=== PATIENT | female | born 2000 | race Caucasian/White ===

== ENCOUNTER 2021-09-17 11:13 | Outpatient (CLI) | payer OTHER, SELFPAY ==
--- NOTE | ~2021-09-17 | US_ITS ---
EXAMINATION: US OB <= 14 weeks fetus DATE: 09/17/2021 11:40 INDICATION: Uncertain dates. TECHNIQUE: Real-time transabdominal pelvic ultrasound was performed. COMPARISON: None. FINDINGS: The uterus measures 15.7 x 7.0 x 9.8 cm. There is an intrauterine gestational sac. A yolk sac is iden tified. The crown rump length measures 5.3 cm, which correlates with an estimated gestational age of 12 weeks and 0 day(s) (+/-) 1 week(s) and 1 day(s). heart motion is identified measuring 154 beats per minute (bpm) by M-mode Doppler. The right ovary measures 3.3 x 1.5 x 2.1 cm. The left ovary measures 5.5 x 5.3 x 4.9 cm. There is a 4.2 cm cystic mass with low level echoes in left ovary, consistent with a hemorrhagic cyst. There is no free fluid in the pelvis. IMPRESSION: 1. Single living intrauterine gestation with estimated date of delivery of 04/01/2022. 2. 4.2 cm hemorrhagic cyst in left ovary. Reviewed, dictated and finalized at location A. IMPRESSION: 1. Single living intrauterine gestation with estimated date of delivery of . 2. 4.2 cm hemorrhagic cyst in left ovary.
== END 2021-09-17 11:14 ==
PROVIDERS: PCP Obstetrics & Gynecology Gynecology; Visit Provider Obstetrics & Gynecology Gynecology
DX: O34.80 Maternal care for other abnormalities of pelvic organs, unspecified trimester (principal); N83.202 Unspecified ovarian cyst, left side; Z3A.00 Weeks of gestation of pregnancy not specified
CPT/HCPCS: 76801

== ENCOUNTER 2021-10-19 11:13 | Outpatient (CLI) | payer OTHER, SELFPAY ==
--- NOTE | ~2021-10-19 | US_ITS ---
US OB limited Indication: Follow-up left ovarian cysts Procedure: High-resolution Limited obstetrical ultrasound Comparison: Ultrasound dated 09/17/2021 Findings: There is a single living intrauterine in breech presentation. heart rate is 146 BPM. Amniotic fluid is subjectively normal. Decreased size of corpus luteal cyst of the left ova ry measuring 2.9 x 2.7 x 1.9 cm compared with 4.2 x 3.8 x 3.9 cm on prior study. Placenta is anterior measuring 1.9 cm to the cervix. Impression: 1: Single living intrauterine in breech presentation. 2: Decreased size of corpus luteal cyst of the left ovary. 3: Low-lying anterior placenta measuring 1.9 cm to the cervix. Reviewed, dictated and finalized at location B. Impression: 1: Single living intrauterine in breech presentation. 2: Decreased size of corpus luteal cyst of the left ovary. 3: Low-lying anterior placenta measuring 1.9 cm to the cervix.
== END 2021-10-19 11:14 ==
LOC: MICIMG 11:14
PROVIDERS: PCP Obstetrics & Gynecology Gynecology; Visit Provider Obstetrics & Gynecology Gynecology
DX: N83.202 Unspecified ovarian cyst, left side (principal); O44.40 Low lying placenta NOS or without hemorrhage, unspecified trimester; Z3A.00 Weeks of gestation of pregnancy not specified
CPT/HCPCS: 76815

== ENCOUNTER 2021-11-03 12:45 | Outpatient (CLI) | payer OTHER, SELFPAY ==
--- NOTE | ~2021-11-03 | US_ITS ---
EXAMINATION: US OB /maternal detail DATE: 11/03/2021 13:15 INDICATION: Second trimester anatomic survey TECHNIQUE: Real-time ultrasound of the pelvis was performed. COMPARISON: None. FINDINGS: There is a single living fetus in vertex presentation. The placenta is anterior and 3.2 cm from the i nternal cervical os. heart rate is 151 beats per minute (bpm). cardiac activity and feta l movement are noted. The amniotic fluid index is subjectively normal. The following anatomy was identified as normal: 4 chamber heart 3 vessel cord cord insertion kidneys urinary bladder stomach spine diaphragm ventricles cisterna magna cerebellum The following biometric data were obtained: Biparietal diameter (BPD): 4.3 cm; head circumference (HC): 15.7 cm; abdominal circumference (AC): 12 .9 cm; femur length (FL): 2.8 cm. These measurements are concordant. Estimated weight is 242 g +/- 36 g, which correlates with the 33rd percentile when 04/01/2022 i s used as estimated date of delivery. As single measurements, these parameters are each equal to the following estimated gestational ages w ith ranges of +/- 2 standard deviations: BPD: 19 weeks 1 days ( 17 weeks 3 days - 20 weeks 6 days). HC: 18 weeks 4 days ( 17 weeks 1 days - 20 weeks 1 days). AC: 18 weeks 3 days ( 16 weeks 6 days - 20 weeks 4 days). FL: 18 weeks 3 days ( 16 weeks 5 days - 20 weeks 2 days). estimated gestational age based solely on measurements from this exam is 18 weeks 5 days +/- 1 weeks 2 days. IMPRESSION: 1. Single living fetus in vertex presentation. 2. Estimated weight is 242 g +/- 36 g, which correlates with the 33rd percentile when 2 is used as estimated date of delivery. Reviewed, dictated and finalized at location A. IMPRESSION: 1. Single living fetus in vertex presentation. 2. Estimated weight is 242 g +/- 36 g, which correlates with the 33rd per centile when 04/01/2022 is used as estimated date of delivery.
== END 2021-11-03 12:46 ==
PROVIDERS: PCP Advanced Practice Midwife; Visit Provider Advanced Practice Midwife
DX: Z36.9 Encounter for antenatal screening, unspecified (principal); Z3A.18 18 weeks gestation of pregnancy
CPT/HCPCS: 76805

== ENCOUNTER 2022-03-30 06:21 | Inpatient (IN) | payer OTHER, SELFPAY ==
[2022-03-30] VITALS (206 sets, daily range): BP systolic 94–222; BP diastolic 52–199; PULSE 87–210; RESP 20; TEMP 36.6–39; O2SAT 82–100; BMI 32.0
--- NOTE | 2022-03-30 06:46 | LDADM ---
This patient, Jenny Musa, was admitted to Labor/Delivery/Recovery 107 on 03/30/22 at 06:21. Plans for labor, pain management and were discussed with patient. Patient/family oriented to hospital policies and general routines including ID bracelet, bed and alarms, visiting hours, pain management, procedures, bathroom and other care routines, personal items, smoking policy, room service/diet and guest tray routines, security routines, and visiting hours. Patient/Family are encouraged to report perceived risks to care and to ask questions if they do not understand what they are told or what they should do. See OBIX for further documentation.
[2022-03-30 07:08] LABS: Basophils Absolute Auto 0.1 K/mm3 (0.0-0.1); Basophils Percent Auto 0.5 % (0.2-1.2); Eosinophils Absolute Auto 0.1 K/mm3 (0-0.3); Hematocrit 33.3 % (37.0-47.0); Hemoglobin 10.7 g/dL (12.0-15.0); Immature Granulocyte Absolute 0.07 K/mm3 (0.00-0.031); Immature Granulocyte Percent A 0.6 % (0-0.5); Lymphocytes Absolute Auto 3.03 K/mm3 (0.9-3.2); Lymphocytes Percent Auto 24.8 % (18.3-44.2); Mean Corpuscular HGB Conc 32.1 g/dl (32-36); Mean Corpuscular Hemoglobin 26.9 pg (26-34); Mean Corpuscular Volume 83.7 fl (80-100); Mean Platelet Volume 11.5 fl (7.4-10.4); Monocytes Absolute Auto 0.8 K/mm3 (0.1-0.6); Monocytes Percent Auto 6.6 % (2.6-8.5); Neutrophils Absolute Auto 8.2 K/mm3 (1.3-6.7); Neutrophils Percent Auto 66.5 % (45.5-73.1); Platelet Count Result 206 k/mm3 (150-375); Red Blood Count 3.98 M/mm3 (4.2-5.4); Red Cell Distribution Width 16.8 % (11.5-14.5); White Blood Count 12.2 K/mm3 (4.5-10.0)
[2022-03-30] MEDS: LACTATED RINGERS 1,000 ML 125 ML IV CONT ×3 (07:32→21:19)
[2022-03-30] MEDS: OXYTOCIN 30 UNITS/NS 500 ML 30 UNITS/500 ML BAG 6 UNITS IV CONT (07:32)
--- NOTE | 2022-03-30 07:54 | WPDOBADMIT ---
Obstetrics - Admit Note Admission Note: record reviewed. No pertinent additions to the history and/or any subsequent changes in the physical findings that are not consistent with the expected course of the were found. Additions to the history and/or subsequent changes in the physical findings follow. Here for MIL. Cervix 5-6/100/-2 AROM with clear fluid. FHTs reactive.
--- NOTE | 2022-03-30 09:58 | WPDANESEPP ---
Anes - Eval Pre Procedure Procedure: labor pain management Date/Time: 03/30/22 09:58 Surgeon: Whitley Preop Diagnosis: pain during labor Pre Op Diagnosis: IOL Patient Data Age: 21 Gender: F Height: 1.6 m Weight: 82 kg Last Vital Signs Temp 98.9 F 03/30/22 08:23 Pulse 102 H 03/30/22 09:45 BP 130/71 03/30/22 09:45 O2 Del Method Room Air 03/30/22 07:10 Allergies Allergy/AdvReac Type Severity Reaction Status Date / Time No Known Allergies Allergy Verified 03/30/22 07:17 Home Medications Medication Instructions Recorded Confirmed Type cholecalciferol (vitamin D3) 125 125 mcg PO WEEKLY 03/03/22 03/30/22 History mcg (5,000 unit) tablet (Vitamin D3) ferrous sulfate 325 mg (65 mg 325 mg PO DAILY 03/03/22 03/30/22 History iron) tablet prenat.vits,conchita,zwb-xemy-mxaxw 1 tablet PO DAILY 03/03/22 03/30/22 History Laboratory Tests 03/30/22 03/30/22 03/30/22 06:49 06:49 06:50 WBC 12.2 K/mm3 H K/mm3 (4.5-10.0) RBC 3.98 M/mm3 L M/mm3 (4.2-5.4) Hgb 10.7 g/dL L g/dL (12.0-15.0) Hct 33.3 % L % (37.0-47.0) MCV 83.7 fl fl (80-100) MCH 26.9 pg pg (26-34) MCHC 32.1 g/dl g/dl (32-36) RDW 16.8 % H % (11.5-14.5) Plt Count 206 k/mm3 k/mm3 (150-375) MPV 11.5 fl H fl (7.4-10.4) Immature Gran % (Auto) 0.6 % H % (0-0.5) Neut % (Auto) 66.5 % % (45.5-73.1) Lymph % (Auto) 24.8 % % (18.3-44.2) [place] % (Auto) 6.6 % % (2.6-8.5) Eos % (Auto) 1.0 % % (0-4.4) Baso % (Auto) 0.5 % % (0.2-1.2) Lymph # (Auto) 3.03 K/mm3 K/mm3 (0.9-3.2) [place] # (Auto) 0.8 K/mm3 H K/mm3 (0.1-0.6) Eos # (Auto) 0.1 K/mm3 K/mm3 (0-0.3) Baso # (Auto) 0.1 K/mm3 K/mm3 (0.0-0.1) Abs Immat Gran (auto) 0.07 K/mm3 H K/mm3 (0.00-0.031) Absolute Neuts (auto) 8.2 K/mm3 H K/mm3 (1.3-6.7) Absolute Nucleated RBC 0.0 K/mm3 K/mm3 (0.0-0.012) Nucleated RBC % 0.0 % % (0.0-0.2) RPR Pending Blood Type A Positive Antibody Screen Negative Patient hx anesthesia problems: none Family hx anesthesia problems: none Prior surgeries: wisdom teeth Results Review: All pre-operative results and documents have been reviewed as part of the pre-operative evaluation. FOR[facility]LY [facility] Past Medical History Medical History Anxiety Family History Family History Other Patient denies significant medical history Social History Social History Substance use: never Spiritual care concerns: No Exam Day of Procedure 03/30/22 09:58
[2022-03-30 10:20] LABS: Rapid Plasma Reagin Non-Reactive (NonReactive)
[2022-03-30] MEDS: AMPICILLIN 2 GM/NS 100 ML 2 GM/100 ML BAG IVPB (17:36)
[2022-03-30] MEDS: ACETAMINOPHEN 500 MG TABLET 1000 MG PO (17:36)
[2022-03-30] MEDS: GENTAMICIN 80MG/SOD CHL 50 ML 80 MG/50 ML BAG 100 MG IVPB (18:28)
--- NOTE | 2022-03-30 20:35 | PM.OBPRVD ---
OB - Delivery Note Procedure Delivery date: 03/30/22 Procedure: Events: Elective Induction of Labor Intrapartal Events: Chorioamnionitis Induction method: AROM Delivery monitor: External FHT and External Uterine Route of delivery: Episiotomy description: None Laceration Description: Perineal - 2nd Degree Delivery repair: vicryl Specimen: Yes Quantitative Blood Loss (ml): 400 Anesthesia type: Epidural Disposition: Floor Narrative: Jenny pushed well and made progress to . There was spontaneous delivery of the head. No restitution was observed. A loose nuchal cord was identified. There was no descent Of the anterior shoulder and a shoulderl dystocia was identified. patient assisted to Beto position but there was still no further descent of the shoulder. Travel Insurance Agent called for suprapubic pressure and this was applied by the RN. At this time, the anterior shoulder slowly descended under the maternal pubic bone. The posterior shoulder slowly delivered and the infant turned occiput anterior. The was grasped under both axilla and gentle traction was applied. There was spontaneous delivery of the remainder of the . The loose nuchal and body cord was untangled and was placed on the maternal abdomen and dried and stimulated. The shoulder dystocia lasted approximately 2-1/2 minutes [place] Baby Date of : 03/30/22 Time of : 19:18 Weeks of gestation at delivery: 39 gender: Female Weight (pounds): 8 Weight (ounces): 3 presentation: vertex position: Left Occiput Anterior Placenta delivery description: Spontaneous Cord Vessel Description: 3 Vessels score one minute: 6 score five minutes: 8
--- NOTE | 2022-03-30 20:42 | PM.OBDSVD ---
DS: Admitting Diagnosis Discharge Date 04/01/22 Admitting Diagnosis IUP at 39 weeks Anxiety Rubella Non-Immune status DS: Discharge Diagnosis Discharge Diagnosis (1) Anxiety: Code(s): F41.9 - Anxiety disorder, unspecified Status: Acute (2) Mother currently breast-feeding: Code(s): Z39.1 - Encounter for care and examination of lactating mother Status: Acute (3) (normal spontaneous vaginal delivery): Code(s): O80 - Encounter for full-term uncomplicated delivery Status: Acute (4) Rubella non-immune status, delivered, current hospitalization: Code(s): O99.892 - Other specified diseases and conditions complicating childbirth; Z28.39 - Other underimmunization status Status: Acute OB - DS: Summary OB Procedures : Ultrasound OB Procedures Intrapartum: Spontaneous Vag Delivery OB Procedures: : None Time Spent with Patient Time attestation: Total time spent providing and/or coordinating discharge services: DS: Data Data Completed and Pending Labs on day of discharge: Labs from last 24 hours 03/30/22 03/30/22 03/30/22 06:50 06:49 06:49 WBC 12.2 H RBC 3.98 L Hgb 10.7 L Hct 33.3 L MCV 83.7 MCH 26.9 MCHC 32.1 RDW 16.8 H Plt Count 206 MPV 11.5 H Immature Gran % (Auto) 0.6 H Neut % (Auto) 66.5 Lymph % (Auto) 24.8 [place] % (Auto) 6.6 Eos % (Auto) 1.0 Baso % (Auto) 0.5 Lymph # (Auto) 3.03 [place] # (Auto) 0.8 H Eos # (Auto) 0.1 Baso # (Auto) 0.1 Abs Immat Gran (auto) 0.07 H Absolute Neuts (auto) 8.2 H Absolute Nucleated RBC 0.0 Nucleated RBC % 0.0 RPR Non-reactive Blood Type A Positive Antibody Screen Negative Discharge Plan Discharge Attending physician on discharge: Shannen Arreaga Discharging Clinician: Shannen Arreaga Anticipated Discharge Date/Time: 04/01/22 20:43 Patient Disposition: Home, Self-Care Activity: may shower and no straining Diet: as tolerated and regular Discharge Instructions: Education: Mom and Baby Guide Given to: Mother Follow-Up: Call your delivering provider's office for an appointment to be seen in: 4 Weeks Mom and baby should come to the [facility] for the follow-up appointment. Appointment Date/Time: at What to expect at your follow-up visit: Blood Pressure Check Call [phone] if you are unable to keep your appointment time. BREAST CARE: * Wear a snug supportive bra. * For engorgement discomfort: Breast Feeding: * Apply warm moist washcloths * Express milk as needed to relieve engorgement * Wear loose clothing Bottle Feeding: * May apply ice packs * For sore nipples: * Identify correct latch-on * Apply warm moist washcloths before and after nursing * Air dry nipples after nursing * May apply Lansinoh cream to nipples PERINEAL CARE: * Until bleeding stops, use your carlos bottle after urinating * Change your pad frequently throughout the day * You may take sitz baths several times a day (fill your bathtub with warm water and soak for 20 minutes.) Do NOT bathe in the water * No tub baths until seen by your physician - You may shower ACTIVITY: * Rest as much as possible. * Do not exercise or lift anything heavier than your baby (such as laundry or other children.) * Avoid stairs or driving as much as possible. * Do not put anything into the vagina. No douching, tampons, or sexual activity until seen by physician. NOTIFY PHYSICIAN IF YOU HAVE ANY QUESTIONS OR IF ANY OF THE FOLLOWING SYMPTOMS OCCUR: * If your perineum becomes red, swollen, or more painful than what you have experienced in the hospital. * If your vaginal bleeding becomes foul smelling. * If your vaginal bleeding becomes more heavy than a period or if your bleeding changes from pink to bright red. However,
--- NOTE | 2022-03-30 22:40 | OBPPTRN ---
Patient transferred to post room #276 via W/C. Support person present. Oriented to unit, room, information board, rooming in, admission packet and security measures. Patient verbalizes understanding.
[2022-03-30] MEDS: IBUPROFEN 600 MG TABLET PO (23:33)
[2022-03-31] VITALS (7 sets, daily range): BP systolic 108–130; BP diastolic 67–88; PULSE 87–105; RESP 16–18; TEMP 36.8–37.3; O2SAT 97–100
[2022-03-31 05:54] LABS: Hematocrit 23.4 % (37.0-47.0); Hemoglobin 7.3 g/dL (12.0-15.0)
--- NOTE | 2022-03-31 06:30 | PC.NURSE ---
PT introductions made and plan of care discussed per post , pain management, breast feeding daily care activities. PT sole recipient of such instructions and no barriers to learning identified at this time. PT received such instructions this shift per one to one discussion , mom baby care guide and demonstrations. PT verbalized understanding of such care.
--- NOTE | 2022-03-31 06:38 | P.PNOB_ITS ---
OB - PN: Subj Subjective Date/time seen: 03/31/22 06:38 Patient comments: no complaints and pain well controlled baby status: doing well and nursing well [place] feeding status: exclusively breast feeding OB - PN: Obj Data Labs CBC & Chem 7: 03/31/22 04:06 Labs: Laboratory Results - last 24 hr 03/30/22 03/30/22 03/30/22 06:49 06:49 06:50 WBC 12.2 H RBC 3.98 L Hgb 10.7 L Hct 33.3 L MCV 83.7 MCH 26.9 MCHC 32.1 RDW 16.8 H Plt Count 206 MPV 11.5 H Immature Gran % (Auto) 0.6 H Neut % (Auto) 66.5 Lymph % (Auto) 24.8 [place] % (Auto) 6.6 Eos % (Auto) 1.0 Baso % (Auto) 0.5 Lymph # (Auto) 3.03 [place] # (Auto) 0.8 H Eos # (Auto) 0.1 Baso # (Auto) 0.1 Abs Immat Gran (auto) 0.07 H Absolute Neuts (auto) 8.2 H Absolute Nucleated RBC 0.0 Nucleated RBC % 0.0 RPR Non-reactive Blood Type A Positive Antibody Screen Negative 03/31/22 04:06 WBC RBC Hgb 7.3 L D Hct 23.4 L MCV MCH MCHC RDW Plt Count MPV Immature Gran % (Auto) Neut % (Auto) Lymph % (Auto) [place] % (Auto) Eos % (Auto) Baso % (Auto) Lymph # (Auto) [place] # (Auto) Eos # (Auto) Baso # (Auto) Abs Immat Gran (auto) Absolute Neuts (auto) Absolute Nucleated RBC Nucleated RBC % RPR Blood Type Antibody Screen OB - PN A/P Assessment and Plan (1) Anemia: Code(s): D64.9 - Anemia, unspecified Status: Acute Assessment and Plan: Iron BID Plan day: 1 Plan: routine care Time Spent With Patient Time: Total time spent is greater than 50% in coordination of care (as documented) at patient's floor/unit and/or counseling patient: Review of Systems Review of Systems: All systems reviewed & are unremarkable except as noted in HPI and below Exam Narrative: Alert and oriented. Mood is pleasant and cooperative. Urinating without difficulty. Denies passing any large clots. Denies dizziness. Perineum with minimal edema. Const: General: healthy appearing and no acute distress Orientation/consciousness: patient oriented x3 Limitations: no limitations Resp: Effort & Inspection: normal respiratory effort Auscultation: clear to auscultation bilaterally Cardio: Rate: regular rate GI: Inspection: normal to inspection Neuro: General: patient oriented x3 Extrem: General: normal to inspection Psych: Appearance: grossly normal Mental Status: mental status grossly normal Affect: normal affect Thought process: Normal thought process present
[2022-03-31] MEDS: ACETAMINOPHEN 325 MG TABLET 650 MG PO ×2 (10:20→17:23)
[2022-03-31] MEDS: FERROUS SULFATE 324 MG TABLET PO ×2 (10:20→17:22)
[2022-03-31] MEDS: MULTIVIT/MIN/PREN/FOL AC/IRON TABLET 1 TAB PO (10:21)
[2022-03-31] MEDS: LANOLIN (LANSINOH) 7.5 GM CREAM 1 APPLIC TOPICAL (10:21)
[2022-03-31] MEDS: IBUPROFEN 600 MG TABLET PO ×2 (10:21→17:23)
[2022-03-31] MEDS: DOCUSATE SODIUM 100 MG CAPSULE PO ×2 (10:22→17:22)
--- NOTE | 2022-03-31 10:33 | WPDANESPN ---
Anes - Prog Note Post-Op Date/Time: 03/31/22 10:33 Cardiovascular status: normal Respiratory status: normal Airway patency: baseline Mental status: baseline Post-Op hydration status: normal Vital Signs: Last Vital Signs Temp 37.1 C 03/31/22 07:30 Pulse 87 03/31/22 07:30 Resp 16 03/31/22 07:30 BP 108/67 03/31/22 07:30 Pulse Ox 99 03/31/22 07:30 O2 Del Method Room Air 03/30/22 22:50 Pain Score (VAS): 0 I/O: Intake & Output 03/30/22 03/31/22 03/31/22 23:59 07:59 15:59 Intake Total 1500 Output Total 450 Balance 1050 Laboratory Tests 03/31/22 04:06 03/31/22 04:06 Hgb 7.3 L D Hct 23.4 L Patient Feedback: Patient satisfied with anesthetic care.
--- NOTE | 2022-03-31 16:27 | PC.NURSE ---
[phone] Introductions were made, then consulted with patient to assess needs related to . Mother led the conversation with her?plans to feed?her infant and states that she is well with no pain. Infant just had a breastfeed. Resources provided for inpatient and outpatient services using mom/baby guide. Mother voiced understanding of information and will call if infant doesn't wake to breastfeed or if there's pain with the latch.
--- NOTE | 2022-04-01 07:30 | PC.NURSE ---
PT introductions made and plan of care discussed per post , pain management, breast feeding daily care activities and pending discharge to home. PT and spouse both recipients of such instructions and no barriers to learning identified at this time. PT received such instructions this shift per one to one discussion , mom baby care guide and demonstrations. PT verbalized understanding of such care.
--- NOTE | 2022-04-01 07:32 | PM.OBPNVD ---
OB - PN: Subj Subjective Date/time seen: 04/01/22 07:32 Patient comments: no complaints and pain well controlled baby status: doing well OB - PN: Obj Data Labs CBC & Chem 7: 03/31/22 04:06 OB - PN A/P Plan day: 2 Plan: routine care, discharge home, follow up 6 weeks and other (unsure bc) Time Spent With Patient Time: Total time spent is greater than 50% in coordination of care (as documented) at patient's floor/unit and/or counseling patient:
[2022-04-01 08:55] VITALS: BP 119/71; PULSE 90; RESP 16; TEMP 37.3; O2SAT 100
[2022-04-01 09:00] VITALS: PULSE 90; RESP 16; O2SAT 100
[2022-04-01] MEDS: DOCUSATE SODIUM 100 MG CAPSULE PO (09:50)
[2022-04-01] MEDS: MULTIVIT/MIN/PREN/FOL AC/IRON TABLET 1 TAB PO (09:51)
[2022-04-01] MEDS: FERROUS SULFATE 324 MG TABLET PO (09:51)
--- NOTE | 2022-04-01 13:00 | PC.NURSE ---
Pt received discharge instructions per protocol and verbalized understanding of such care.
--- NOTE | 2022-04-01 13:07 | PC.NURSE ---
0930 - Consulted with patient to see how is going so far. Mother is applying make up and eagerly states, It is going great better today than yesterday Mother declined assistance and has no questions at this time. Mother was encouraged to call for assistance with if her doesn't wake to latch or there's pain with latching. Reported to primary RN. [phone] RN was called to patient room to assist before they go home. Mother states she is unable to get baby awake to breastfeed. Mother works well with her infant with encouragement and education. Encouraged understanding of the benefits of skin to skin (unwrapping and placing vertically on her chest), responsive feeding and how to watch for early feeding signs, frequency of feeding on demand about every 8-12 times in 24 hours (every 2-3 hours), milk production, duration of feeding, signs of adequate intake/output and how to record on the feeding sheet. Reviewed positioning and ear, shoulder, hip alignment, supporting the breast, asymmetrical latch (off-center), and leading with the chin with a big open side gape. latched optimally to the right breast in cross cradle position after a few attempts and some hand expression to move some milk down to encourage to stay and suckle. had difficulty settling down to the breast. opens with a wide gape, takes a few sucks, then comes off the breast. Mother has been supplementing with bottled formula during this admission. Education given to mother of how to visualize suck/swallow ratios and listen for drinking at the breast. Infant was able to maintain latch without discomfort to mother. Nipple care reviewed with optimal latch and good positioning. After a 15 minute breastfeed with good rocking motion and swallowing intermittently self detached. Infant was placed skin to skin, then offered the left breast using football positioning. Infant had a large transitional stool, diaper was changed, then offered the breast. It took a few attempts to settle to the left breast using football positioning on the left breast. was encouraged to actively breastfeed. Resource mom and baby guide was referred to for additional resources. Mother voiced understanding of responsive feedings, stimulating with skin to skin, hand expressed colostrum, massage touch, talking to infant to encourage if it has been 2 -3 hours since the start of the last , to call if does not latch or there is discomfort with . Primary RN is present for the second .
[2022-04-01] MEDS: MEASLES,MUMPS,RUBELLA VACCINE 0.5 ML VIAL SUB-Q (13:21)
--- NOTE | 2022-04-01 13:30 | PC.NURSE ---
PT discharged to home ambulatory accompanied by spouse and and taken to waiting car. Follow up appts confirmed
[2022-04-02 09:14] VITALS: BP 134/82; PULSE 97; RESP 20; TEMP 37; O2SAT 99
== END 2022-04-01 13:30 | disposition home or self-care (01) | DRG 805 ==
LOC: ANHLDR 20:44 → ANHOB2 23:21
PROVIDERS: Admitting Provider Obstetrics & Gynecology Gynecology; PCP Advanced Practice Midwife; Visit Provider Obstetrics & Gynecology Gynecology
DX: O75.2 Pyrexia during labor, not elsewhere classified (principal); O41.1230 Chorioamnionitis, third trimester, not applicable or unspecified; Z37.0 Single live birth; O98.52 Other viral diseases complicating childbirth; O99.344 Other mental disorders complicating childbirth; F41.9 Anxiety disorder, unspecified; O70.1 Second degree perineal laceration during delivery; O69.81X0 Labor and delivery complicated by cord around neck, without compression, not applicable or unspecified; O66.0 Obstructed labor due to shoulder dystocia; O99.02 Anemia complicating childbirth; Z3A.39 39 weeks gestation of pregnancy
CPT/HCPCS: 36415; 85014; 85018; 85025; 86592; 86850; 86900; 86901; 88307; 90710; A9270; J0290; J1580; J2590; J2795; J7120

== ENCOUNTER 2022-04-08 15:59 | Emergency (ER) | payer OTHER, SELFPAY ==
[2022-04-08 16:08] VITALS: BP 147/84; PULSE 130; RESP 16; TEMP 36.4; O2SAT 100
[2022-04-08 17:12] LABS: Appearance Urine Slightly Cloudy (Clear); Bilirubin Urine Negative (Negative); Blood Urine 3+ (Negative); Color Urine Yellow (Yellow); Glucose Urine UA Negative (Negative); Ketones Urine Negative (Negative); Leukocyte Esterase Ur 2+ LEU/UL (Negative); Nitrate Urine Negative (Negative); Protein Urine Negative (Negative); Specific Grav Ur <= 1.005 (1.001-1.035); Urobilinogen Urine 0.2 mg/dL (<2.0); pH Urine 5.5 (5.0-9.0)
[2022-04-08 17:15] LABS: Bacteria Urine Trace /hpf; Mucus Urine Rare /lpf; RBC Urine 0-2 /hpf (0-2); Squamous Epithelial Cell Urine Rare /hpf (Few)
[2022-04-08 17:16] LABS: Add Urine Microscopic? YES
--- NOTE | 2022-04-08 17:39 | ED.RECABL ---
HPI - Recheck/Abnormal Lab/Rx General Chief Complaint: Recheck/Abnormal Lab/Rx Stated Complaint: hematuria Time Seen by Provider: 04/08/22 16:26 History of Present Illness HPI narrative: Patient is a 21-year-old female who presents ER with concerns of hematuria. She reports that she has noticed some blood around her urethral area of the vagina and in the toilet when she urinates. It is also staying with air when she removes her with menstrual pads. Patient recently had a vaginal delivery last week. She did have a tear. She has no dysuria. No itching or burning around the vagina. She is concerned that there may be another issue that she cannot identify. Related Data Home Medications Medication Instructions Recorded Confirmed cholecalciferol (vitamin D3) 125 125 mcg PO WEEKLY 03/03/22 03/30/22 mcg (5,000 unit) tablet (Vitamin D3) ferrous sulfate 325 mg (65 mg 325 mg PO DAILY 03/03/22 03/30/22 iron) tablet prenat.vits,conchita,fwk-pghw-xeeuv 1 tablet PO DAILY 03/03/22 03/30/22 Allergies Allergy/AdvReac Type Severity Reaction Status Date / Time No Known Allergies Allergy Verified 03/30/22 07:17 Review of Systems Constitutional: Constitutional: Denies chills and Denies fever(s) Gastrointestinal: Gastrointestinal: Denies abdominal pain, Denies nausea and Denies vomiting Genitourinary: Genitourinary: Reports abnormal vaginal bleeding, Reports hematuria, Denies nocturia, Denies dysuria, Denies pelvic pain and Denies flank pain PMFSH Past Medical History Medical History Anxiety Family History Family History Other Patient denies significant medical history Social History Social History Substance use: never Spiritual care concerns: No Exam Narrative: GENERAL: Well-appearing, well-nourished, and in no acute distress. HEAD: Normocephalic, atraumatic. CHEST: Clear to auscultation. No respiratory distress. HEART: Regular rate and rhythm. Normal peripheral pulses. ABDOMEN: Soft, nontender, nondistended. : Normal external genitalia. During the labia minora majora on the right side there is some dry skin, no lacerations or scabbing in the area. Cervix continues without bright red blood. Old blood within the vagina. Physiologic discharge noted. EXTREMITIES: Normal range of motion. No edema. SKIN: Warm, dry, no rash. NEURO: Alert and oriented x3. PSYCH: Normal mood and affect. Course Course Emergency Course: Urine was questionable infection. We will put on a few days of cephalexin. Discussed applying some Vaseline to the area of the vagina to act as a protective barrier in case I could be causing some bleeding. Follow-up with OB. Vital Signs Vital signs: Vital Signs Temperature 97.5 F L 04/08/22 16:08 Pulse Rate 130 H 04/08/22 16:08 Respiratory Rate 16 04/08/22 16:08 Blood Pressure 147/84 H 04/08/22 16:08 Pulse Oximetry 100 04/08/22 16:08 Temperature 97.5 F L 04/08/22 16:08 Pulse Rate 130 H 04/08/22 16:08 Respiratory Rate 16 04/08/22 16:08 Blood Pressure 147/84 H 04/08/22 16:08 Pulse Oximetry 100 04/08/22 16:08 MDM - Recheck/Abnormal Lab/Rx Lab Data Labs: Lab Results 04/08/22 Range/Units 17:05 Urine Color Yellow (Yellow) Urine Appearance Slightly cloudy (Clear) Urine pH 5.5 (5.0-9.0) Ur Specific Parker <= 1.005 (1.001-1.035) Urine Protein Negative (Negative) mg/dL Urine Glucose (UA) Negative (Negative) mg/dL Urine Ketones Negative (Negative) mg/dL Ur Blood (Man) 3+ H (Negative) Urine Nitrate Negative (Negative) Urine Bilirubin Negative (Negative) Urine Urobilinogen 0.2 (<2.0) mg/dL Leukocyte Esterase Rfl 2+ H (Negative) JEFF/UL Urine RBC 0-2 (0-2) /hpf Urine WBC 10-15 H /hpf Ur Squamous Epith Cells Rare (Few) /hpf Uri
[2022-04-08 17:41] VITALS: PULSE 94; RESP 16; O2SAT 100
== END 2022-04-08 18:07 | disposition home or self-care (01) ==
PROVIDERS: Emergency Provider Emergency Medicine; PCP Advanced Practice Midwife
DX: O86.20 Urinary tract infection following delivery, unspecified (principal); N39.0 Urinary tract infection, site not specified; O99.893 Other specified diseases and conditions complicating puerperium; N90.89 Other specified noninflammatory disorders of vulva and perineum
CPT/HCPCS: 81001; 87086; 99283

== ENCOUNTER 2024-03-29 15:14 | Outpatient (CLI) | payer OTHER, SELFPAY ==
--- NOTE | ~2024-03-29 | US_ITS ---
EXAMINATION: US OB <= 14 weeks fetus DATE: 03/29/2024 22:19 COST ESTIMATING ENGINEER INDICATION: Viability COMPARISON: 02/15/2024 TECHNIQUE: Real-time transabdominal obstetric ultrasound. FINDINGS: 2 para 1 Estimated date of delivery by last menstrual period is 10/25/2024 The uterus measures 9.7 x 5.8 x 8.6 cm. A gestational sac is identified within the uterus. A pole is identified, with a crown-rump length that measures 3.16 cm, corresponding to an appro ximate gestational age of 10 weeks and 0 days. cardiac activity is identified at a rate of 163 bpm. Despite prolonged interrogation, the right ovary was not seen. The left ovary measures 3.9 x 2.3 x 3.3 cm. Arterial and venous flow are detected Estimated date of delivery by ultrasound is 10/26/2023 IMPRESSION: Single intrauterine gestation with an approximate gestational age of 10 weeks and 0 days, with cardiac activity identified. Reviewed, dictated and finalized at location A. ESTIMATING ENGINEER IMPRESSION: Single intrauterine gestation with an approximate gestational age of 10 weeks a nd 0 days, with cardiac activity identified.
== END 2024-03-29 15:15 | disposition home or self-care (01) ==
LOC: MICIMG 15:14
PROVIDERS: PCP Advanced Practice Midwife; Visit Provider Advanced Practice Midwife
DX: O36.80X0 Pregnancy with inconclusive fetal viability, not applicable or unspecified (principal); Z3A.10 10 weeks gestation of pregnancy
CPT/HCPCS: 76801

== ENCOUNTER 2024-05-29 11:48 | Outpatient (CLI) | payer OTHER, SELFPAY ==
--- NOTE | ~2024-05-29 | US_ITS ---
EXAMINATION: US OB /maternal detail DATE: 05/29/2024 16:22 LOANS OFFICER INDICATION: Anatomy scan TECHNIQUE: Real-time transabdominal obstetric ultrasound. FINDINGS: There is a single intrauterine gestation in vertex presentation. The placenta is posterior, measuring approximately 3.58 cm from the cervix. The cervix measures 3.5 cm in length. cardiac activity and movement is noted with a heart rate of 143 beats per minute. Anatomic parameters are as follows The bladder is visualized and is unremarkable. A three-vessel cord is present. Cord insertion is not clearly demonstrated to be on the midline on the submitted images for which f ollow-up is needed. Bilateral kidneys are present without hydronephrosis. The anterior margin of the diaphragm is continuous. The posterior margin of the diaphragm is poorly visualized for which follow-up examination is needed. The cervical, thoracic and lumbar spines are covered in their entirety. choroid plexi are visualized, and unremarkable. Lateral ventricles are visualized measuring 5.6 and 5.8 mm, respectively. The falx is visualized. The cerebellum is visualized measuring 19.1 mm, and is sonographically unremarkable. The cisterna magna measures 3.5 mm in anterior to posterior dimension (normal measurement is 2 to 10 mm). The nuchal fold measures 5 mm (greater than 6 mm is considered abnormal). Cine of the four-chamber heart is visualized and is anatomic. Both the right and left ventricular outflow tracts are identified and are unremarkable. Limited views of the arms, hands, legs and feet were performed and appear grossly unremarkable. Limited evaluation of the upper lip and nose to confirm their continuity is appreciated on the subm itted images for which follow-up examination is needed. The following biometric data were obtained: Biparietal diameter (BPD): 4.3 cm; head circumference (HC): 15.4 cm; abdominal circumference (AC): 13.2 cm; femur length (FL): 2.6 cm. These measurements are concordant. Estimated weight is 235 g +/- 35.2 g, which correlates with the 24th percentile when 10/27/2024 is used as estimated date of delivery. As single measurements, these parameters are each equal to the following estimated gestational ages: BPD: 18 weeks 6 days. HC: 18 weeks 3 days. AC: 18 weeks 5 days. FL: 17 weeks 6 days. estimated gestational age based solely on measurements from this exam is 18 weeks 3 days +/- 1 weeks 2 days. IMPRESSION: Single intrauterine gestation with an approximate gestational age of 18 weeks and 3 days. Estimated d ue date by ultrasound is 10/27/2024. Follow-up examination is recommended for further evaluation of: the 3 vessel cord to confirm midline insertion, Both the anterior and posterior margins of the diaphragm to confirm continuity, Preferably a profile view of the upper lip and nose to confirm continuity. Remainder of the anatomy scan is unremarkable, and within normal limits. Reviewed, dictated and finalized at location A. S OFFICER IMPRESSION: Single intrauterine gestation with an approximate gestational age of 18 weeks a nd 3 days. Estimated due date by ultrasound is 10/27/2024. Follow-up examination is recommended for further evaluation of: the 3 vessel cord to confirm midline insertion, Both the anterior and posterior margins of the diaphragm to confirm anyi nuity, Preferably a profile view of the upper lip and nose to confirm continuity. Remainder of the anatomy scan is unremarkable, and within normal limits.
== END 2024-05-29 11:49 | disposition home or self-care (01) ==
LOC: MICIMG 11:49
PROVIDERS: PCP Nurse Practitioner Women's Health; Visit Provider Nurse Practitioner Women's Health
DX: Z36.9 Encounter for antenatal screening, unspecified (principal); Z3A.18 18 weeks gestation of pregnancy
CPT/HCPCS: 76805

== ENCOUNTER 2024-09-21 14:26 | Outpatient (RCR) | payer OTHER, SELFPAY ==
[2024-09-21 15:10] VITALS: BP 113/74
== END 2024-12-20 23:59 | disposition home or self-care (01) ==
LOC: ANHOBOP 14:26
PROVIDERS: Visit Provider Obstetrics & Gynecology Gynecology
DX: O26.893 Other specified pregnancy related conditions, third trimester (principal); Z3A.35 35 weeks gestation of pregnancy
CPT/HCPCS: 59025

== ENCOUNTER 2024-10-15 06:32 | Inpatient (IN) | payer OTHER, SELFPAY ==
[2024-10-15] VITALS (67 sets, daily range): BP systolic 75–122; BP diastolic 40–90; PULSE 72–142; RESP 18; TEMP 36.6–37.4; O2SAT 98–100; BMI 30.4
--- OUTSIDE RECORDS SUMMARY | 2024-10-15 06:37 | XMS_ITS | Clinical Summary ---
Author Organization [facility] Address [address] [place] [address] Care Team Providers Care Produce Department Supervisor Name Role Phone Unavailable Primary Care Provider Unavailabl e Source Comments [facility],non-owned Affiliates and Associated Physician Practices is amultiple site organization consisting of ambulatory clinics and hospital sitesin [place], [place], [place] and [place]. This disclosure is being madepursuant to the Care Everywhere program and may not contain all information available regarding this patient. Last updated 18.[facility] Allergies No known active allergies Medications * Be aware that medications may not be up to date on this document. Alwaysverify current medications with the patient. drospirenone-et hinyl estradiol (ANGELIQUE) 3-0.02 MG tablet Take 1 Tab by mouth once daily Active albuterol HFA (PROVENTIL;VENT SOLOMON;PROAIR) 108 (90 Base) MCG/ACT inhaler Inhale 2 puffs by mouth every 4 hours as needed for Wheezing 1 Inhaler 01/21/2019 Active benzonatate (TESSALON) 200 MG capsule Take 1 capsule by mouth 3 times daily as needed for Cough 30 capsule 01/21/2019 Active Social History Tobacco Use Types Packs/Day Years Used Date Smoking Tobacco: Never Smokeless Tobacco: Never Comments Unknown Sex and Gender Information Value Date Recorded Sex Assigned at Not on file Legal Sex Female 4:55 PM CDT Gender Identity Not on file Sexual Orientation Not on file Last Filed Vital Signs Vital Sign Reading Time Taken Comments Blood Pressure 112/62 01/21/2019 12:59 PM CDT Pulse 130 01/21/2019 12:59 PM CDT Temperature 37.4 C (99.3 F) 01/21/2019 12:59 PM CDT Respiratory Rate 18 01/21/2019 12:59 PM CDT Oxygen Saturation 98% 01/21/2019 12:59 PM CDT Inhaled Oxygen Concentration - - Weight 61.2 kg (135 lb) 01/21/2019 12:59 PM CDT Height 160 cm (5' 3) 01/21/2019 12:59 PM CDT Body Mass Index 23.91 01/21/2019 12:59 PM CDT Plan of Treatment Health Maintenance Due Date Last Done Comments HIV SCREENING 2013 HPV VACCINE (1 - 3-dose series) 2013 HEPATITIS C SCREENING 06/03/2016 DTAP/TDAP/TD VACCINES (1 - Tdap) 2017 HEPATITIS B VACCINE (1 of 3 - 19+ 3-dose series) 2017 COVID-19 VACCINE (1 - 2023-2 5 season) 2024 DEPRESSION SCREENING 05/16/2024 INFLUENZA VACCINE (Season Ended) 2025 ZOSTER VACCINE (1 of 2) 2048 HIB VACCINE Aged Out No longer eligi ble based on patient's age to complete this topic MENINGOCOCCAL (Group B) VACC INE SHARED DECISION-MAKING Aged Out No longer eligibl e based on patient's age to complete this topic MENINGOCOCCAL GROUPS A/C/Y/W VACCINE Aged Out No longer eligible b ased on patient's age to complete this topic PNEUMOCOCCAL VACCINE Aged Out No long er eligible based on patient's age to complete this topic Insurance [facility] Address[address] [address] [place] [address]
--- OUTSIDE RECORDS SUMMARY | 2024-10-15 06:37 | XMS_ITS | Clinical Summary ---
Author Organization [facility] Address [address] [place] [address] Phone Care Team Providers Care Balance Sheet Analyst Name Role Phone Unavailable Primary Care Provider Unavailabl e Active Problems Problem Noted Date Diagnosed Date High risk , antepartum 07/19/2024 ventricular septal def ect affecting antepartum care of mother 07/19/2024 Maternal mental disorder, antepartum 07/19/2024 Comments Yes Encounters Date Type Department Care Team Description 09/27/2024 8:30 AM CDT - 09/27/2024 11:59 PM CDT Hospital Encounter [facility] Maternal and Ground Floor S [facility] [address] [place] [phone] Nettie Desai MD Discharge Disposition: Home or Self Care 09/13/2024 10:41 AM CDT - 09/13/2024 11:59 PM CDT Hospital Encounter [facility] Maternal and Ground Floor S [facility] [address] [place] [phone] Jamie Miles MD Discharge Disposition: Home or Self Care 08/16/2024 10:56 AM CDT - 08/16/2024 11:59 PM CDT Hospital Encounter [facility] [address] [place] [address] Nettie Desai MD Discharge Disposition: Home or Self Care 08/14/2024 External Device Data STL ABSTRACTION Provider, Abstract 08/02/2024 10:27 AM CDT - 08/02/2024 11:59 PM CDT Hospital Encounter [facility] [address] [place] [address] Nettie Desai MD Discharge Disposition: Home or Self Care 08/02/2024 10:27 AM CDT - 08/02/2024 11:59 PM CDT Hospital Encounter [facility] [address] [place] [address] Nettie Desai MD Discharge Disposition: Home or Self Care 07/21/2024 External Device Data STL ABSTRACTION Provider, Abstract 07/20/2024 External Device Data STL ABSTRACTION Provider, Abstract 07/19/2024 3:15 PM WEBSITE PROGRAMMER Initial [facility] Maternal and Medicine [place] [address] [address] [facility] [address] [place] [address] Nettie Desai MD High risk , antepartum (Primary Dx); ventricular septal defect affecting antepartum care of mother, single or unspecified fetus; Maternal mental disorder, antepartum; 26 weeks gestation of 07/19/2024 2:10 PM WEBSITE PROGRAMMER - 07/19/2024 11:59 PM WEBSITE PROGRAMMER Hospital Encounter [facility] Maternal and Ground Floor [address] [place] [address] [place] [address] Lisa Patrick MD Discharge Disposition: Home or Self Care 07/19/2024 Orders Only [facility] Maternal and Ground Floor S [facility] [address] [place] [address] Yonis Arreaga MD Abnormal ultrasonic finding on screening of mother (Primary Dx) from Last 3 Months Social History Tobacco Use Types Packs/Day Years Used Date Smoking Tobacco: Never Assessed Comments Yes Sex and Gender Information Value Date Recorded Sex Assigned at Female 07/19/2024 1:05 PM WEBSITE PROGRAMMER Legal Sex Female 7:30 AM WEBSITE PROGRAMMER Gender Identity Female 07/19/2024 1:05 PM WEBSITE PROGRAMMER Sexual Orientation Straight 07/19/2024 1: 05 PM WEBSITE PROGRAMMER Last Filed Vital Signs Vital Sign Reading Time Taken Comments Blood Pressure 110/75 07/19/2024 3:23 PM WEBSITE PROGRAMMER Pul se: 101 Pulse - - Temperature - - Respiratory Rate - - Oxygen Saturation - - Inhaled Oxygen Concentration - - Weight 65.8 kg (145 lb) 07/19/2024 3:23 PM WEBSITE PROGRAMMER Height 91.4 cm (3') 07/19/2024 3:23 PM WEBSITE PROGRAMMER Body Mass Index 78.66 07/19/2024 3:23 PM WEBSITE PROGRAMMER Plan of Treatment Health Maintenance Due Date Last Done Comments HPV VACCINES (1 - 3-dose series) 2013 DTAP/TDAP/TD VACCINES (1 - Tdap) 2017 HEPATITIS B VACCINES (1 of 3 - 19+ 3-dose series) 05/17 CERVICAL CANCER SCREENING 2019 HPV/Cotest (21-29) 2019 PAP SMEAR 2019 INFLUENZA VACCINE (#1) 2023 RSV VACCINE (60+ or ) (1 - 1-dose 75+ series) 2073 Procedures Procedure Name Priority Date/Time Associated Diagnosis Comments US OB FOLLOW UP + UMB ART Routine 09/27/2024 9:13 AM CDT IUGR (intrauterine growth restriction) affecting care of mother, second trimester, other fetus US OB FOLLOW UP PER FETUS Routine 09/13/2024 11:54 AM CDT Ventricular septal defect during , single or unspecified fetus US OB FOLLOW UP PER FETUS Routine 08/16/2024 11:25 AM CDT Abnormal ultrasonic finding on screening of mother ECHO 2D + COLOR FLOW VELOCITY Routine 08/02/2024 11:44 AM CDT Abnormal ultrasonic finding on screening of mother US OB FOLLOW UP PER FETUS Routine 08/02/2024 11:44 AM CDT Abnormal ultrasonic finding on screening of mother US OB FOLLOW UP PER FETUS Routine 07/19/2024 3:32 PM WEBSITE PROGRAMMER screening for malformation using ultrasonics Abnormal finding on ultrasound from Last 3 Months Results * US OB FOLLOW UP + UMB ART (09/27/2024 9:13 AM CDT) Anatomical Region Laterality Modality Pelvis Ultrasound 09/27/2024 8:38 AM CDT Narrative 09/28/2024 2:20 PM CDT STL FOLLOW UP ----- Pat. Name: CHEIKH DIXON Study Date: 09/27/2024 8:38am Pat. NO: [id number] Referring MD: YONIS ARREAGA MD Site: [facility] Auditing Coder: Kim Tilley RDMS : 2000 Age: 24 ----- INDICATION ----- Screening Follow-Up Abnormal Finding on Previous Ultrasound Ventricular Septal Defect Intrauterine Growth Restriction (IUGR) CODING ----- Diagnoses Z3A.36: Weeks of gestation Z36.2: Encounter for other screening follow-up O28.3: Abnormal ultrasonic finding on screening of mother Z3A.36: Weeks of gestation O36.5930: Maternal care for other known or suspected poor growth O35.8XX0: Maternal care for other (suspected) abnormality and damage, not applicable or unspecified Procedures 01821: Ultrasound, uterus, real time with image documentation, follow up, transabdominal approach per fetus 48046: Doppler velocimetry, ; umbilical artery METHOD ----- Transabdominal ultrasound examination ----- [place] . Number of fetuses: 1 DATING ----- LMP on: 01/19/2024 GA by LMP 36 w + 0 d CAMILLA by LMP: 10/25/2024 GA by prior assessment 36 w + 0 d CAMILLA by prior assessment: 10/25/2024 Ultrasound examination on: 09/27/2024 GA by U/S based upon: AC, BPD, EFW, Femur, HC GA by U/S 33 w + 4 d CAMILLA by U/S: 11/11/2024 Method of dating: Restore dating from previous exam Assigned: based on the LMP, selected on 07/05/2024 Assigned GA 36 w + 0 d Assigned CAMILLA: 10/25/2024 BIOMETRY ----- BPD 82.7 mm 33w 2d 3% Hadlock OFD 112.8 mm 38w 3d 81% Taniya HC 312.4 mm 35w 0d 6% Hadlock AC 307.9 mm 34w 5d 24% Hadlock Femur 60.7 mm 31w 4d <1% Hadlock HC / AC 1.01 42% Nicolaides Weight Calculation: EFW 2,265 g 33w 3d 7% Hadlock EFW (lb,oz) 5 lb 0 oz EFW by Hadlock ([id number]) Extremities / Bony Struc Biometry: FL / BPD 0.73 FL / HC 0.19 FL / AC 0.20 GENERAL EVALUATION ----- Cardiac activity present. FHR 140 bpm. movements: present. Presentation: cephalic Placenta: Placental site: posterior Umbilical cord: Cord vessels: 3 vessel cord. Amniotic fluid: Amount of AF: normal amount. MVP 4.0 cm. GAYLA 15.0 cm. Q1 4.0 cm, Q2 3.7 cm, Q3 3.4 cm, Q4 3.9 cm DOPPLER ----- Umbilical Artery: PI 0.86 58% Nancy RI 0.59 59% Nancy PS 47.83 cm/s ED 18.90 cm/s TAmax 33.56 cm/s MD 18.07 cm/s S / D 2.47 54% Nancy HR 136 bpm ANATOMY ----- The following structures appear normal: Head / Neck Cranium. Midline falx. Cavum septi pellucidi. Heart / Thorax Diaphragm. Abdomen Stomach. Kidneys. Bladder. sex: male. GROWTH OVERVIEW ----- Exam date GA BPD (mm) HC (mm) AC (mm) FL (mm) HL (mm) EFW (g) 07/05/2024 24w 0d 54.3 5% 217.3 24% 183.3 17% 41.1 18% 38.5 27% 577 15% 07/19/2024 26w 0d 63.2 27% 240.3 28% 211.8 32% 43.4 3% 782 14% 08/02/2024 28w 0d 69.1 31% 258.6 23% 49.6 8% 1,031 13% 08/16/2024 30w 0d 72.2 12% 275.8 19% 254.1 33% 52.0 2% 1,319 12% 09/13/2024 34w 0d 81.2 13% 292.9 1% 286.9 18% 59.2 <1% 1,906 7% 09/27/2024 36w 0d 82.7 3% 312.4 6% 307.9 24% 60.7 <1% 2,265 7% COMMENT ----- Patient's name and date of were verified by the couturiere prior to the exam IMPRESSION ----- CHEIKH is here for follow up growth and testing for suspected growth restriction. [place] gestation, 36w0d. biometry indicates less than anticipated growth for the established due date. Suspected growth restriction based on overall growth at the 7th percentile. The abdominal circumference (AC) is at the 24th percentile. Growth has been adequate since last assessment. The amniotic fluid volume is within normal limits. Umbilical Artery Dopplers reveal no evidence of increased arterial resistance. No abnormalities were detected during today's limited review of the anatomy. The previously identified VSD was not clearly observed on scan today. Today?s biometries may be evidence of impaired growth based on AC less than 10th percentile. Comments: We reviewed the sonographic findings and limitations of ultrasound. We reviewed the plan of care. Recommendations: - Continue growth assessment every 2 weeks. - Umbilical artery Doppler assessment every 2 weeks. - Modified BPP twice weekly until delivery. - With growth restriction between the 3rd and 10th percentile with normal umbilical artery Doppler studies, I recommend delivery at [id number]. This recommendation may change based on interval maternal and assessment. Thank you for allowing us to participate in the care of this patient. ADDENDUM ----- RETRIGGER Procedure Note Rosalva Cornejo MD - 09/28/2024 STL FOLLOW UP ----- Pat. Name:Nestor DIXON Date:09/27/2024 8:38am Pat. NO: [id number] :YONIS ARREAGA MD [facility]Kim Tilley RDMS :2000Age:24 ----- INDICATION ----- Screening Follow-Up Abnormal Finding on Previous Ultrasound Ventricular Septal Defect Intrauterine Growth Restriction (IUGR) CODING ----- Diagnoses Z3A.36: Weeks of gestation Z36.2: Encounter for other screeningfollow-up O28.3: Abnormal ultrasonic finding on antenatalscreening of mother Z3A.36: Weeks of gestation O36.5930: Maternal care for other known orsuspected poor growth O35.8XX0: Maternal care for other (suspected) abnormality and damage, not applicable or unspecified Procedures 47351: Ultrasound, uterus, real time withimage documentation, follow up, transabdominal approach per fetus 15543: Doppler velocimetry, ; umbilicalartery METHOD ----- Transabdominal ultrasound examination ----- [place] . Number of fetuses: 1 DATING ----- LMP on:01/19/2024 GA by [id number] w + 0 d CAMILLA by LMP:10/25/2024 GA by prior [id number] w + 0 d CAMILLA by prior assessment:10/25/2024 Ultrasound examination on:09/27/2024 GA by U/S based upon:AC, BPD, EFW, Femur, HC GA by U/S33 w + 4 d CAMILLA by U/S:11/11/2024 Method of dating:Restore dating from previous exam Assigned:based on the LMP, selected on 07/05/2024 Assigned GA36 w + 0 d Assigned CAMILLA:10/25/2024 BIOMETRY ----- BPD 82.7 mm 33w 2d 3%Hadlock OFD 112.8 mm 38w 3d 81%Taniya HC 312.4 mm 35w 0d 6%Hadlock AC 307.9 mm 34w 5d 24%Hadlock Femur 60.7 mm 31w 4d <1%Hadlock HC / AC 1.01 42%Nicolaides Weight Calculation: EFW 2,265 g 33w 3d7% Hadlock EFW (lb,oz) 5 lb 0 oz EFW by Hadlock ([id number]) Extremities / Bony Struc Biometry: FL / BPD 0.73 FL / HC 0.19 FL / AC 0.20 GENERAL EVALUATION ----- Cardiac activity present. FHR 140 bpm. movements: present.Presentation: cephalic Placenta: Placental site: posterior Umbilical cord: Cord vessels: 3 vessel cord. Amniotic fluid: Amount of AF: normal amount. MVP 4.0 cm. GAYLA 15.0 cm. Q14.0 cm, Q2 3.7 cm, Q3 3.4 cm, Q4 3.9 cm DOPPLER ----- Umbilical Artery: PI 0.86 58%Nancy RI 0.59 59%Nancy PS 47.83 cm/s ED 18.90 cm/s TAmax 33.56 cm/s MD 18.07 cm/s S / D 2.47 54%Nancy HR 136 bpm ANATOMY ----- The following structures appear normal: Head / Neck Cranium. Midline falx. Cavum septi pellucidi. Heart / Thorax Diaphragm. Abdomen Stomach. Kidneys. Bladder. sex: male. GROWTH OVERVIEW ----- Exam date GA BPD (mm) HC (mm) AC (mm) FL(mm) HL (mm) EFW (g) 07/05/2024 24w 0d 54.3 5% 217.3 24% 183.3 17%41.1 18% 38.5 27% 577 15% 07/19/2024 26w 0d 63.2 27% 240.3 28% 211.8 32%43.4 3% 782 14% 08/02/2024 28w 0d 69.1 31% 258.6 23%49.6 8% 1,031 13% 08/16/2024 30w 0d 72.2 12% 275.8 19% 254.1 33%52.0 2% 1,319 12% 09/13/2024 34w 0d 81.2 13% 292.9 1% 286.9 18%59.2 <1% 1,906 7% 09/27/2024 36w 0d 82.7 3% 312.4 6% 307.9 24%60.7 <1% 2,265 7% COMMENT ----- Patient's name and date of were verified by the couturiere prior tothe exam IMPRESSION ----- CHEIKH is here for follow up growth and testing for suspectedfetal growth restriction. [place] gestation, 36w0d. biometry indicates less than anticipated growth for theestablished due date. Suspected growth restriction based on overall growth at the 7th percentile. The abdominalcircumference (AC) is at the 24th percentile. Growth has been adequate since last assessment. The amniotic fluid volume is within normal limits. Umbilical Artery Dopplers reveal no evidence of increased arterialresistance. No abnormalities were detected during today's limited review of the fetalanatomy. The previously identified VSD was not clearly observed on scan today. Today?s biometries may be evidence of impaired growth based on ACless than 10th percentile. Comments: We reviewed the sonographic findings and limitations of ultrasound. Wereviewed the plan of care. Recommendations: - Continue growth assessment every 2 weeks. - Umbilical artery Doppler assessment every 2 weeks. - Modified BPP twice weekly until delivery. - With growth restriction between the 3rd and 10th percentile withnormal umbilical artery Doppler studies, I recommend delivery at [id number]. This recommendation may change based on intervalmaternal and assessment. Thank you for allowing us to participate in the care of this patient. ADDENDUM ----- RETRIGGER us Nettie Desai MD US ORDERABLES Edited Result - Final * US OB FOLLOW UP PER FETUS (09/13/2024 11:54 AM CDT) Only the most recent of4 resultswithin the time period is included. Anatomical Region Laterality Modality Pelvis Ultrasound 09/13/2024 11:1 3 AM CDT Narrative 09/13/2024 11:55 AM CDT STL FOLLOW UP ----- Pat. Name: CHEIKH DIXON Study Date: 09/13/2024 11:13am Pat. NO: [id number] Referring MD: YONIS ARREAGA MD Site: [facility] Auditing Coder: Aleida Torres RDMS, RVT : 2000 Age: 24 ----- INDICATION ----- Screening Follow-Up Abnormal Finding on Previous Ultrasound VSD CODING ----- Diagnoses Z3A.34: Weeks of gestation Z36.2: Encounter for other screening follow-up O28.3: Abnormal ultrasonic finding on screening of mother Procedures 52370: Ultrasound, uterus, real time with image documentation, follow up, transabdominal approach per fetus 48640: Doppler velocimetry, ; umbilical artery METHOD ----- Transabdominal ultrasound examination ----- [place] . Number of fetuses: 1 DATING ----- LMP on: 01/19/2024 GA by LMP 34 w + 0 d [place] by LMP: 10/25/2024 GA by prior assessment 34 w + 0 d CAMILLA by prior assessment: 10/25/2024 Ultrasound examination on: 09/13/2024 GA by U/S based upon: AC, BPD, EFW, Femur, HC GA by U/S 32 w + 0 d CAMILL[place] by U/S: 11/08/2024 Method of dating: Restore dating from previous exam Assigned: based on the LMP, selected on 07/05/2024 Assigned GA 34 w + 0 d Assigned CAMILLA: 10/25/2024 BIOMETRY ----- BPD 81.2 mm 32w 4d 13% Hadlock OFD 104.7 mm 34w 2d 57% Taniya HC 292.9 mm 32w 2d 1% Hadlock AC 286.9 mm 32w 5d 18% Hadlock Femur 59.2 mm 30w 6d <1% Hadlock HC / AC 1.02 37% Nicolaides Weight Calculation: EFW 1,906 g 31w 5d 7% Hadlock EFW (lb,oz) 4 lb 3 oz EFW by Hadlock ([id number]) Extremities / Bony Struc Biometry: FL / BPD 0.73 FL / HC 0.20 FL / AC 0.21 GENERAL EVALUATION ----- Cardiac activity present. FHR 162 bpm. movements: present. Presentation: cephalic Placenta: Placental site: posterior Umbilical cord: Cord vessels: 3 vessel cord. Insertion site: placental insertion: normal Amniotic fluid: Amount of AF: normal amount. MVP 4.7 cm. GAYLA 10.8 cm. Q1 4.7 cm, Q2 3.1 cm, Q3 3.0 cm, Q4 0.0 cm DOPPLER ----- Umbilical Artery: PI 0.95 67% Nancy RI 0.61 59% Nancy PS 53.98 cm/s 71% Ebbing ED 21.62 cm/s TAmax 34.43 cm/s 61% Ebbing MD 21.24 cm/s S / D 2.59 53% Nancy HR 163 bpm ANATOMY ----- The following structures appear abnormal: Heart / Thorax 4-chamber view: VSD. The following structures appear normal: Head / Neck Cranium. Lateral ventricles. Choroid plexus. Midline falx. Cavum septi pellucidi. Cerebellum. Cisterna magna. Heart / Thorax RVOT view. LVOT view. Diaphragm. Abdomen Stomach. Kidneys. Bladder. sex: male. GROWTH OVERVIEW ----- Exam date GA BPD (mm) HC (mm) AC (mm) FL (mm) HL (mm) EFW (g) 07/05/2024 24w 0d 54.3 5% 217.3 24% 183.3 17% 41.1 18% 38.5 27% 577 15% 07/19/2024 26w 0d 63.2 27% 240.3 28% 211.8 32% 43.4 3% 782 14% 08/02/2024 28w 0d 69.1 31% 258.6 23% 49.6 8% 1,031 13% 08/16/2024 30w 0d 72.2 12% 275.8 19% 254.1 33% 52.0 2% 1,319 12% 09/13/2024 34w 0d 81.2 13% 292.9 1% 286.9 18% 59.2 <1% 1,906 7% COMMENT ----- Patient's name and date of were verified by the couturiere prior to the exam IMPRESSION ----- 1. Single living fetus with a gestational age of 34w 0d, based on the reported clinical dates. 2. Current growth parameters are consistent with the stated EDC. The size is SMALL for gestational age at 7% percentile (1906 g). 3. Unremarkable limited anatomy noted with the exception of the previously identified VSD. 4. The amniotic fluid is normal for gestational age (MVP:4.7 cm, GAYLA: 10.8 cm). 5. Posterior placenta. No previa/not low-lying. 6. Umbilical (UA) Doppler finding of: S/D 2.59 ( 53%) which is normal for gestational age. No evidence of absent or reverse of end diastolic flow (AEDV/REDV). Comments: I had the pleasure of seeing your patient in follow-up for the above mentioned indications. We reviewed the overall sonographic findings and the limitations associated with ultrasound evaluations Recommendations: - Continue Doppler interrogation studies. - Continue serial growth at 2 week intervals. - Continue surveillance as planned. - Delivery goal 38-39 weeks. Thank you for allowing us to participate in the care of this patient. Procedure Note Nettie Desai MD - 09/13/2024 STL FOLLOW UP ----- Pat. Name:Nestor DIXON Date:09/13/2024 11:13am Pat. NO: [id number] MD:YONIS ARREAGA MD [facility]:Aleida Torres RDMS, RVT :2000Age:24 ----- INDICATION ----- Screening Follow-Up Abnormal Finding on Previous Ultrasound VSD CODING ----- Diagnoses Z3A.34: Weeks of gestation Z36.2: Encounter for other screeningfollow-up O28.3: Abnormal ultrasonic finding on antenatalscreening of mother Procedures 12803: Ultrasound, uterus, real time withimage documentation, follow up, transabdominal approach per fetus 15886: Doppler velocimetry, ; umbilicalartery METHOD ----- Transabdominal ultrasound examination ----- [place] . Number of fetuses: 1 DATING ----- LMP on:01/19/2024 GA by [id number] w + 0 d CAMILLA by LMP:10/25/2024 GA by prior [id number] w + 0 d CAMILLA by prior assessment:10/25/2024 Ultrasound examination on:09/13/2024 GA by U/S based upon:AC, BPD, EFW, Femur, HC GA by U/S32 w + 0 d CAMILLA by U/S:11/08/2024 Method of dating:Restore dating from previous exam Assigned:based on the LMP, selected on 07/05/2024 Assigned GA34 w + 0 d Assigned CAMILLA:10/25/2024 BIOMETRY ----- BPD 81.2 mm 32w 4d 13%Hadlock OFD 104.7 mm 34w 2d 57%Taniya HC 292.9 mm 32w 2d 1%Hadlock AC 286.9 mm 32w 5d 18%Hadlock Femur 59.2 mm 30w 6d <1%Hadlock HC / AC 1.02 37%Nicolaides Weight Calculation: EFW 1,906 g 31w 5d7% Hadlock EFW (lb,oz) 4 lb 3 oz EFW by Hadlock ([id number]) Extremities / Bony Struc Biometry: FL / BPD 0.73 FL / HC 0.20 FL / AC 0.21 GENERAL EVALUATION ----- Cardiac activity present. FHR 162 bpm. movements: present.Presentation: cephalic Placenta: Placental site: posterior Umbilical cord: Cord vessels: 3 vessel cord. Insertion site: placentalinsertion: normal Amniotic fluid: Amount of AF: normal amount. MVP 4.7 cm. GAYLA 10.8 cm. Q14.7 cm, Q2 3.1 cm, Q3 3.0 cm, Q4 0.0 cm DOPPLER ----- Umbilical Artery: PI 0.95 67%Nancy RI 0.61 59%Nancy PS 53.98 cm/s 71%Ebbing ED 21.62 cm/s TAmax 34.43 cm/s 61%Ebbing MD 21.24 cm/s S / D 2.59 53%Nancy HR 163 bpm ANATOMY ----- The following structures appear abnormal: Heart / Thorax 4-chamber view: VSD. The following structures appear normal: Head / Neck Cranium. Lateral ventricles. Choroid plexus.Midline falx. Cavum septi pellucidi. Cerebellum. Cisterna magna. Heart / Thorax RVOT view. LVOT view. Diaphragm. Abdomen Stomach. Kidneys. Bladder. sex: male. GROWTH OVERVIEW ----- Exam date GA BPD (mm) HC (mm) AC (mm) FL(mm) HL (mm) EFW (g) 07/05/2024 24w 0d 54.3 5% 217.3 24% 183.3 17%41.1 18% 38.5 27% 577 15% 07/19/2024 26w 0d 63.2 27% 240.3 28% 211.8 32%43.4 3% 782 14% 08/02/2024 28w 0d 69.1 31% 258.6 23%49.6 8% 1,031 13% 08/16/2024 30w 0d 72.2 12% 275.8 19% 254.1 33%52.0 2% 1,319 12% 09/13/2024 34w 0d 81.2 13% 292.9 1% 286.9 18%59.2 <1% 1,906 7% COMMENT ----- Patient's name and date of were verified by the couturiere prior tothe exam IMPRESSION ----- 1. Single living fetus with a gestational age of 34w 0d, based on thereported clinical dates. 2. Current growth parameters are consistent with the stated EDC. The fetalsize is SMALL for gestational age at 7% percentile (1906 g). 3. Unremarkable limited anatomy noted with the exception of thepreviously identified VSD. 4. The amniotic fluid is normal for gestational age (MVP:4.7 cm, GAYLA: 10.8cm). 5. Posterior placenta. No previa/not low-lying. 6. Umbilical (UA) Doppler finding of: S/D 2.59 ( 53%) which is normal forgestational age. No evidence of absent or reverse of end diastolic flow (AEDV/REDV). Comments: I had the pleasure of seeing your patient in follow-up for theabove mentioned indications. We reviewed the overall sonographic findings and the limitations associated with ultrasoundevaluations Recommendations: - Continue Doppler interrogation studies. - Continue serial growth at 2 week intervals. - Continue surveillance as planned. - Delivery goal 38-39 weeks. Thank you for allowing us to participate in the care of this patient. us Jamie Miles MD US ORDERABLES Final Resu lt * ECHO 2D + COLOR FLOW VELOCITY (08/02/2024 11:44 AM CDT) Narrative 08/02/2024 1:02 PM CDT Order information only. Exam was auto-finalized. us Nettie Desai MD US ORDERABLES Final Result from Last 3 Months Insurance [facility] [id number]
[2024-10-15] MEDS: OXYTOCIN 30 UNITS/NS 500 ML 30 UNITS/500 ML BAG IV CONT (07:19)
[2024-10-15] MEDS: LACTATED RINGERS 1,000 ML 125 ML IV CONT ×2 (07:20→09:34)
[2024-10-15] MEDS: AMPICILLIN 2 GM/NS 100 ML 2 GM/100 ML BAG IVPB (07:21)
--- NOTE | 2024-10-15 07:41 | LDADM ---
This patient, Jenny Musa, was admitted to Labor/Delivery/Recovery 108 on 10/15/24 at 06:32. Plans for labor, pain management and were discussed with patient. Patient/family oriented to hospital policies and general routines including ID bracelet, bed and alarms, visiting hours, pain management, procedures, bathroom and other care routines, personal items, smoking policy, room service/diet and guest tray routines, security routines, and visiting hours. Patient/Family are encouraged to report perceived risks to care and to ask questions if they do not understand what they are told or what they should do. See OBIX for further documentation.
[2024-10-15 08:00] LABS: Basophils Percent Auto 0.4 % (0.2-1.2); Eosinophils Absolute Auto 0.2 K/mm3 (0-0.3); Eosinophils Percent Auto 2.2 % (0-4.4); Hematocrit 31.2 % (37.0-47.0); Hemoglobin 9.7 g/dL (12.0-15.0); Immature Granulocyte Absolute 0.08 K/mm3 (0.00-0.031); Immature Granulocyte Percent A 0.7 % (0-0.5); Lymphocytes Absolute Auto 2.55 K/mm3 (0.9-3.2); Lymphocytes Percent Auto 23.6 % (18.3-44.2); Mean Corpuscular HGB Conc 31.1 g/dl (32-36); Mean Corpuscular Hemoglobin 25.5 pg (26-34); Mean Corpuscular Volume 82.1 fl (80-100); Mean Platelet Volume 11.9 fl (7.4-10.4); Monocytes Absolute Auto 0.7 K/mm3 (0.1-0.6); Monocytes Percent Auto 6.8 % (2.6-8.5); Neutrophils Absolute Auto 7.2 K/mm3 (1.3-6.7); Neutrophils Percent Auto 66.3 % (45.5-73.1); Platelet Count Result 188 k/mm3 (150-375); Red Cell Distribution Width 18.8 % (11.5-14.5); White Blood Count 10.8 K/mm3 (4.5-10.0)
--- NOTE | 2024-10-15 08:04 | WPDOBADMIT ---
Obstetrics - Admit Note Admission Note: record reviewed. No pertinent additions to the history and/or any subsequent changes in the physical findings that are not consistent with the expected course of the were found. Additions to the history and/or subsequent changes in the physical findings follow. Here for MIL. Cervix now 3-4/70/-2 anterior. AROM with Bloody fluid. FHTs reactive. Abdomen soft, nt Obs for signs of abruption. RN informed.
[2024-10-15 08:55] LABS: Syphilis IgG/IgM Antibody Negative (Negative)
[2024-10-15 09:09] LABS: HIV 1/2 Ab P24 Ag Result Negative (Negative)
[2024-10-15] MEDS: ONDANSETRON INJ 4 MG/2 ML VIAL IV PUSH (09:17)
--- NOTE | 2024-10-15 11:47 | PM.OBPRVD ---
OB - Vaginal Delivery Note Procedure Delivery date: 10/15/24 Events: Intrauterine Growth Restriction (IUGR) Induction method: AROM and Per Pitocin Protocol Delivery monitor: External FHT and Internal Uterine Route of delivery: Episiotomy description: None Laceration Description: Perineal - 2nd Degree Delivery repair: vicryl (3-0) Specimen: No Quantitative Blood Loss (ml): 100 Anesthesia type: Epidural Disposition: Floor Complications: No immediate complications [place] Baby Date of : 10/15/24 Gestational Age by Date: 38 (38 3) gender: Male presentation: vertex position: Right Occiput Anterior Placenta delivery description: Spontaneous Cord Vessel Description: 3 Vessels and Delayed Cord Clamping
--- NOTE | 2024-10-15 11:49 | P.DS_ITS ---
DS: Admitting Diagnosis Discharge Date 10/16/24 Admitting Diagnosis IUP 38 3/7 wks IUGR MIL DS: Discharge Diagnosis Discharge Diagnosis (1) (normal spontaneous vaginal delivery): Code(s): O80 - Encounter for full-term uncomplicated delivery Status: Acute OB - DS: Summary OB Procedures : Ultrasound OB Procedures Intrapartum: Spontaneous Vag Delivery OB Procedures: : None Peripartum Data Infant Delivery Method: Natural Vaginal Laceration Description: Perineal - 2nd Degree Episiotomy description: None complications: none Status at Discharge Functional status at discharge: independent ambulation Overall status at discharge: patient is progressing back to baseline Time Spent with Patient Time attestation: Total time spent providing and/or coordinating discharge services: DS: Data Data Completed and Pending Labs on day of discharge: Labs from last 24 hours 10/15/24 07:13 WBC 10.8 H RBC 3.80 L Hgb 9.7 L Hct 31.2 L MCV 82.1 MCH 25.5 L MCHC 31.1 L RDW 18.8 H Plt Count 188 MPV 11.9 H Immature Gran % (Auto) 0.7 H Neut % (Auto) 66.3 Lymph % (Auto) 23.6 [place] % (Auto) 6.8 Eos % (Auto) 2.2 Baso % (Auto) 0.4 Lymph # (Auto) 2.55 [place] # (Auto) 0.7 H Eos # (Auto) 0.2 Baso # (Auto) 0.0 Abs Immat Gran (auto) 0.08 H Absolute Neuts (auto) 7.2 H Absolute Nucleated RBC 0.000 Nucleated RBC % 0.0 Syphilis IgG/IgM Ab Negative HIV 1&2 Ab/P24 Ag 4thGn Negative Blood Type A Positive Antibody Screen Negative Discharge Plan Discharge Attending physician on discharge: Shannen Arreaga Discharging Clinician: Shannen Arreaga Anticipated Discharge Date/Time: 10/17/24 11:50 Patient Disposition: Home Activity: may shower and pelvic rest Diet: regular Patient Instructions: Antibiotic Form Patient Language: Bhutanese Stand Alone Forms: General Discharge Information Follow-up/Referrals: Shannen Arreaga MD [Physician] - 6 Weeks Discharge Medications: New norethindrone (contraceptive) 0.35 mg tablet 0.35 mg PO DAILY Qty: 84 3RF Continued sertraline 50 mg tablet 50 mg PO DAILY ferrous sulfate 325 mg (65 mg iron) Tablet 325 mg PO DAILY prenat.vits,conchita,pio-heyc-gzfry Tablet 1 tablet PO DAILY cholecalciferol (vitamin D3) [Vitamin D3] 125 mcg (5,000 unit) Tablet 125 mcg PO WEEKLY Discontinued aspirin 81 mg capsule 81 mg PO DAILY Date of admission: 10/15/24 06:32 Primary Care Provider: PHYSICIAN,FLIGHT TEST DATA ACQUISITION TECHNICIAN Admitting Provider: Shannen Arreaga Attending physician on admission: Shannen Arreaga Condition: Stable
[2024-10-15] MEDS: OXYTOCIN 30 UNITS/NS 500 ML 30 UNITS/500 ML BAG 125 UNITS IV CONT (12:13)
--- NOTE | 2024-10-15 15:30 | OBPPTRN ---
Patient transferred to post room #281 via (wheelchair). Support person present. Oriented to unit, room, information board, rooming in, admission packet and security measures. Patient verbalizes understanding.
--- NOTE | 2024-10-15 16:20 | PC.NURSE ---
Met with mother regarding needs. Infant has been transferred. It is her intention to pump and bottle feed. She has her Mom Cozy pump and states that she is familiar with it's use. Encouraged consistent pumping 8 times a day, at least once at night. Educated that she may not see a lot of volume initially. Patient denies having any other questions or concerns. RN updated.
[2024-10-15] MEDS: POLYSACCHARIDE IRON COMPLEX 150 MG CAPSULE PO (17:16)
[2024-10-15] MEDS: WITCH HAZEL 40 PADS 1 PAD TOPICAL (19:09)
[2024-10-15] MEDS: BENZOCAINE 20% AER SPR (*SP) 56 GM CAN 1 SPRAY TOPICAL (19:09)
[2024-10-16 00:05] VITALS: BP 95/58; PULSE 89; RESP 16; TEMP 36.7; O2SAT 99
[2024-10-16 04:18] LABS: Hematocrit 26.7 % (37.0-47.0); Hemoglobin 8.2 g/dL (12.0-15.0)
--- NOTE | 2024-10-16 07:38 | PM.OBPNVD ---
OB - PN: Subj Subjective Date/time seen: 10/16/24 07:38 Patient comments: no complaints and pain well controlled baby status: NICU (due to breathing) feeding status: exclusively breast feeding OB - PN: Obj Data Labs 10/16/24 03:42 Labs: Laboratory Results - last 24 hr 10/15/24 10/16/24 07:13 03:42 WBC 10.8 H RBC 3.80 L Hgb 9.7 L 8.2 L Hct 31.2 L 26.7 L MCV 82.1 MCH 25.5 L MCHC 31.1 L RDW 18.8 H Plt Count 188 MPV 11.9 H Immature Gran % (Auto) 0.7 H Neut % (Auto) 66.3 Lymph % (Auto) 23.6 [place] % (Auto) 6.8 Eos % (Auto) 2.2 Baso % (Auto) 0.4 Lymph # (Auto) 2.55 [place] # (Auto) 0.7 H Eos # (Auto) 0.2 Baso # (Auto) 0.0 Abs Immat Gran (auto) 0.08 H Absolute Neuts (auto) 7.2 H Absolute Nucleated RBC 0.000 Nucleated RBC % 0.0 Syphilis IgG/IgM Ab Negative HIV 1&2 Ab/P24 Ag 4thGn Negative Blood Type A Positive Antibody Screen Negative OB - PN A/P Plan day: 1 Plan: routine care, discharge home, follow up 6 weeks and other (POP for BC) Time Spent With Patient Time: Total time spent is greater than 50% in coordination of care (as documented) at patient's floor/unit and/or counseling patient: Exam : Bimanual exam- vagina & uterus: other (Uterus firm, nt @U)
[2024-10-16] MEDS: SERTRALINE HCL 50 MG TABLET PO (08:00)
[2024-10-16] MEDS: MULTIVIT/MIN/PREN/FOL AC/IRON TABLET 1 TAB PO (08:00)
[2024-10-16] MEDS: POLYSACCHARIDE IRON COMPLEX 150 MG CAPSULE PO (08:00)
[2024-10-16 08:05] VITALS: BP 102/72; PULSE 82; RESP 18; TEMP 36.6; O2SAT 100
--- NOTE | 2024-10-16 08:55 | PC.NURSE ---
Reviewed standard discharge information with patient including milk production and consistency with pumping. Offered outpatient resources with WIC referral and Services at [facility]. Patient has the Mom/Baby Guide for further education and reference for common concerns, phone numbers, and guidance on when to call the doctor. A pumping plan was added to the discharge plan. Patient states that she has no further questions or concerns regarding .???
[2024-10-17 10:00] VITALS: BP 115/66; PULSE 86; RESP 18; TEMP 37.6; O2SAT 100
== END 2024-10-16 09:20 | disposition home or self-care (01) | DRG 807 ==
LOC: ANHLDR 11:50 → ANHOB2 15:43
PROVIDERS: Admitting Provider Obstetrics & Gynecology Gynecology; Visit Provider Obstetrics & Gynecology Gynecology
DX: O36.5930 Maternal care for other known or suspected poor fetal growth, third trimester, not applicable or unspecified (principal); Z37.0 Single live birth; O70.1 Second degree perineal laceration during delivery; Z3A.38 38 weeks gestation of pregnancy
CPT/HCPCS: 36415; 85014; 85018; 85025; 86593; 86703; 86850; 86900; 86901; A9270; G0432; J0290; J2405; J2590; J2795; J7120